=== PATIENT | male | born 1955 | race Native Hawaiian/Other Pacific Islander ===

== ENCOUNTER 2019-06-17 22:35 | Emergency (ER) | payer OTHER ==
[~2019-06-17] VITALS: Ht 167.6 cm; Wt 78.0 kg
[2019-06-17 23:19] LABS: PLATELET COUNT 198 K/uL (142-355)
[2019-06-17 23:24] LABS: POTASSIUM 3.3 mmol/L (3.6-5.2)
[2019-06-17 23:55] VITALS: BP 119/74; TEMP 98.8
[2019-06-18] MEDS ORDERED: ASPIR-8181 MG PO (02:23)
[2019-06-18] MEDS ORDERED: LIPITOR80 MG PO (02:23)
[2019-06-18] MEDS ORDERED: CITALOPRAM20 M1 PO (02:24)
[2019-06-18] MEDS ORDERED: DIAZ2TAB PO ×2 (02:25→02:26)
[2019-06-18] MEDS ORDERED: LANOXIN125 MCG PO (02:27)
[2019-06-18] MEDS ORDERED: DOK100 MG PO (02:28)
[2019-06-18] MEDS ORDERED: LAMO100T PO (02:28)
[2019-06-18] MEDS ORDERED: LAMICTAL25 MG PO (02:29)
[2019-06-18] MEDS ORDERED: ROWEEPRA500 MG PO (02:29)
[2019-06-18] MEDS ORDERED: LINZESS72 MCG PO (02:30)
[2019-06-18] MEDS ORDERED: MELATONIN3 M1 PO (02:31)
[2019-06-18] MEDS ORDERED: MAG OXIDE400 MG PO (02:31)
[2019-06-18] MEDS ORDERED: PROTONIX20 MG PO (02:33)
[2019-06-18] MEDS ORDERED: MULTIVITAMI1 PO (02:33)
[2019-06-18] MEDS ORDERED: TYLENOL325 MG PO (02:34)
[2019-06-18] MEDS ORDERED: BISCOLAX10 MG RE (02:34)
[2019-06-18] MEDS ORDERED: GAVILA1 PO (02:35)
[2019-06-18] MEDS ORDERED: OXYC5TAB53 PO (02:36)
== END 2019-06-17 23:55 | disposition other institution (70) ==
LOC: ED 22:35 → EDBD 22:35 → ED 22:35
PROVIDERS: Emergency Medicine
DX: F28 Other psychotic disorder not due to a substance or known physiological condition (principal); Z04.6 Encounter for general psychiatric examination, requested by authority
CPT/HCPCS: 80053; 85027; 99283; 99285